=== PATIENT | female | born 1985 | race Caucasian/White ===

== ENCOUNTER 2016-11-07 05:32 | Inpatient (IN) | payer BC ==
--- NOTE | 2016-11-06 22:31 | PCM.LDHP ---
L&D History of Present Illness - General Date of Service: 11/07/16 Admit Problem/Dx: Admission Diagnosis/Problem Admission Diagnosis/Problem 11/06/16 22:21 31-year-old 4 para 2011 white female admitted for elective repeat section at 39-5/7 weeks gestational age Source of Information: Patient History Limitations: Reports: No Limitations - History of Present Illness Introduction:: Jabier is a 31-year-old 4 para 2012 white female who is admitted for elective repeat section. She is a 39-5/7 weeks gestational age. EFREN is set at 11/09/2016 by certain last menstrual period which started on 02/03/2016 and is supported by 2 ultrasounds dated 04/15/2016 and 06/24/2016. course: Patient abductor vaginosis noted on first urine culture, this was treated. she declined genetic testing. [place] depression screening score on 06/16/2016 was 8 on a scale 30 she is group B strep positive. She has a history of 2 and desires repeat section. Patient is rubella immune. Patient's obstetric history shows a menarche at age 11. Cycles every 32 days. Positive hCG on 03/14/2016. Last menstrual period was relatively definite and started on 02/03/2016. Previous deliveries include: 1. Male born 02/15/2012 at 41 weeks gestational age after 28 hours of labor. 9 lbs. 1 oz. Child's name is Mando 2. Miscarriage 04/27/2013, first trimester 3. Female infant born 12[birth year]2014 at 40 weeks gestational age. Child's name is Naomi Llamas care started on 02/14/2016 at 10-2/7 weeks gestational age. He was seen on a very regular basis. She had normal blood pressures throughout the course of and had normal fundal height growth. Her weight increased from 151.6 pounds to 194 a 39 pound weight gain. Laboratory testing showed blood to be O+, negative and by screen, hemoglobin at first visit was 14.2 and platelets are 333,000. She is rubella immune. RPR is nonreactive. Urine culture was positive for group B strep. Second trimester testing showed a hemoglobin of 12.6 and a platelet count of 230,000. One-hour GTT is 117. Group B strep screen was positive. Allergies: none Medications: Vitamins 1 daily Past medical history: 1. Miscarriage 1 2. Seasonal allergies 3. Abnormal Pap smear with HPV 2008 Past surgical history: 1. 2010 and again in 2014 2. Loop electrosurgical excision procedure for cervical dysplasia 2008 Family history: Mother is alive and healthy. Dad is alive and well. 3 brothers and 1 sister alive and well. Maternal grandmother is alive with heart disease. Maternal grandfather to live with an CT history. Paternal grandmother with heart disease. Paternal grandfather secondary to stroke. No anesthesia, bleeding, blood clotting problems noted in the family. No genetic abnormalities noted. Social history: Patient is . is Say. 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 She denies any significant loss of alcohol, drugs or tobacco. They live in [place]. Review of systems: Skin is negative Respiratory no signs of asthma or infectious disease at this time Cardiovascular no chest pain or exercise intolerance Breasts no pain or bleeding. There is increased size and tenderness noted due to GI is unremarkable changes associated with with fundal height at 41 cm Extremities muscle skeletal-no concerns Neurologic-negative Physical exam: General the patient is well-developed well-nourished pleasant female stated age distress. Blood pressures 13 2/90 and on recheck 140/90. Heart rate is 131 for baby. Weight is 190. Her height is 5 feet 6 and pregravid weight was 151.6 Skin is warm dry without lesions. HEENT, neck and back within normal limits Lungs are clear with good breath sounds in all lung monet. Cardiovascular shows regular rate Without murmurs. Breast exam deferred had been done at first visit and found to be normal. Abdomen shows fundal height of 41 cm, baby in vertex presentation Last cervical exam in clinic done on 10/30/2016 showed cervix to be closed/thick at 50%/firm/posterior/-3 Extremities neurological exam are grossly within normal limits. - Related Data Allergies/Adverse Reactions: Allergies Allergy/AdvReac Type Severity Reaction Status Date / Time No Known Allergies Allergy Verified 12/08/14 05:59 Home Medications: Home Meds Folic Acid 1 mg PO DAILY 12/08/14 [History] L.acidoph,Paracasei, B.lactis [Probiotic] 1 each PO DAILY 12/08/14 [History] PNV95/Ferrous Fumarate/FA [ Multivitamins] 1 tab PO DAILY 12/08/14 [ History] Acetaminophen/oxyCODONE [Percocet 325-5 MG] 2 tab PO Q4H PRN #20 tablet [Rx] Ibuprofen [Motrin] 600 mg PO Q4H PRN #30 tablet 12/10/14 [Rx] Iron Polysaccharides Complex [Ferrex 150] 150 mg PO TID #100 cap 12/10/14 [Rx] Lanolin [Lansinoh HPA] 1 applic TOP ASDIRECTED PRN #30 crm 12/10/14 [Rx] Past Medical History - Past Health History Medical/Surgical History: Denies Medical/Surgical History Other OB/BYN History: in 2010 Social & Family History - Tobacco Use Smoking Status *Q: Never Smoker Second Hand Smoke Exposure: No - Alcohol Use Days Per Week of Alcohol Use: 0 (none during , occasional social consumption prior) - Recreational Drug Use Recreational Drug Use: No H&P Review of Systems - Review of Systems: Review Of Systems: See Below L&D Exam - Exam Exam: See Below - Vital Signs Weight: 86.409 kg - Patient Data Lab Results Last 24 hrs: Laboratory Results - last 24 hr 11/06/16 11/06/16 Range/Units 08:27 08:27 WBC 9.34 (3.98-10.04) K/mm3 RBC 4.43 (3.98-5.22) M/mm3 Hgb 12.5 (11.2-15.7) gm/L Hct 37.8 (34.1-44.9) % MCV 85.3 (79.4-94.8) fl MCH 28.2 (25.6-32.2) pg MCHC 33.1 (32.2-35.5) g/dl RDW Std Deviation 44.1 (36.4-46.3) fL Plt Count 198 (182-369) K/mm3 MPV 10.6 (9.4-12.3) fl Neut % (Auto) 66.2 (34.0-71.1) % Lymph % (Auto) 23.9 (19.3-51.7) % [place] % (Auto) 8.0 (4.7-12.5) % Eos % (Auto) 1.0 (0.7-5.8) Baso % (Auto) 0.2 (0.1-1.2) % Neut # (Auto) 6.18 H (1.56-6.13) K/mm3 Lymph # (Auto) 2.23 (1.18-3.74) K/mm3 [place] # (Auto) 0.75 H (0.24-0.36) K/mm3 Eos # (Auto) 0.09 (0.04-0.36) K/mm3 Baso # (Auto) 0.02 (0.01-0.08) K/mm3 Blood Type O POSITIVE Gel Antibody Screen Negative Result Diagrams: 11/06/16 08:27 Problem List Initiated/Reviewed/Updated: Yes Assessment/Plan Comment:: Assessment: 1. Term intrauterine at 39-5/7 weeks gestational age upon admission for elective repeat section. Procedure, risks, benefits, possible occasions and alternatives of care discussed in detail the patient. She appears understanding and wishes to proceed 2. Group B strep positive status 3. History of Gardnerella vaginalis infection and pregnancytreated 4. Patient plans to nurse 5. Patient declined influenza testing, genetic testing. 6. Blood is O+ Plan: 1. Repeat lower segment transverse section through Pfannenstiel incision under spinal block. Procedure, risks, benefits, follow-up and alternatives were discussed in detail with patient. She appears understanding, wishes to proceed and has signed a consent. 2. Patient plans to nurse 3. Antibiotic prophylaxis with Ancef 2 g IV preop 4. Will inform pediatrics of patient's group B strep positive status 5. Laboratory testing consistent with CBC, type and screen, urine analysis
[2016-11-07] MEDS ORDERED: Citric Acid/Sodium Citrate Solution 30 ML Cup PO ONE (06:14)
[2016-11-07] MEDS ORDERED: Metoclopramide 10 MG/2 ML SDV IVPUSH ONE (06:14)
[2016-11-07] MEDS ORDERED: ceFAZolin 2 GM in Premix Bag 1 BAG IV ONE (06:14)
[2016-11-07] MEDS ORDERED: Sodium Chloride 0.9% 10 ML Syringe FLUSH PRN (06:14)
[2016-11-07] MEDS ORDERED: Oxytocin/Lactated Ringers 10 UNIT/1,000 ML BAG IV SCH (06:15)
--- NOTE | 2016-11-07 06:49 | PCM.PREANE ---
Preanesthetic Assessment - Procedure Proposed Procedure: Repeat C-sect - Anesthesia/Transfusion/Family Hx Anesthesia History: Prior Anesthesia Without Reaction Family History of Anesthesia Reaction: No - Review of Systems General: No Symptoms Pulmonary: No Symptoms Cardiovascular: No Symptoms Gastrointestinal: No symptoms Neurological: No Symptoms Other: Reports: None - Physical Assessment NPO Status Date: 11/07/16 NPO Status Time: 21:00 O2 Sat by Pulse Oximetry: 100 Respiratory Rate: 18 Vital Signs: Last Vital Signs Temp 37.2 C 11/07/16 06:20 Pulse 71 11/07/16 06:20 Resp 18 11/07/16 06:20 BP 129/86 11/07/16 06:20 Pulse Ox 100 11/07/16 06:20 Height: 1.68 m Weight: 86.409 kg ASA Class: 2 Mental Status: Alert & Oriented x3 Airway Class: Mallampati = 2 Dentition: Reports: Normal Dentition Thyro-Mental Finger Breadths: 3 Mouth Opening Finger Breadths: 3 ROM/Head Extension: Full Lungs: Clear to auscultation, Normal respiratory effort Cardiovascular: Regular Rate, Regular Rhythm, No Murmurs - Lab Values: Laboratory Last Values WBC 9.34 K/mm3 (3.98-10.04) 11/06/16 08:27 RBC 4.43 M/mm3 (3.98-5.22) 11/06/16 08:27 Hgb 12.5 gm/L (11.2-15.7) 11/06/16 08:27 Hct 37.8 % (34.1-44.9) 11/06/16 08:27 MCV 85.3 fl (79.4-94.8) 11/06/16 08:27 MCH 28.2 pg (25.6-32.2) 11/06/16 08:27 MCHC 33.1 g/dl (32.2-35.5) 11/06/16 08:27 RDW Std Deviation 44.1 fL (36.4-46.3) 11/06/16 08:27 Plt Count 198 K/mm3 (182-369) 11/06/16 08:27 MPV 10.6 fl (9.4-12.3) 11/06/16 08:27 Neut % (Auto) 66.2 % (34.0-71.1) 11/06/16 08:27 Lymph % (Auto) 23.9 % (19.3-51.7) 11/06/16 08:27 [place] % (Auto) 8.0 % (4.7-12.5) 11/06/16 08:27 Eos % (Auto) 1.0 (0.7-5.8) 11/06/16 08:27 Baso % (Auto) 0.2 % (0.1-1.2) 11/06/16 08:27 Neut # (Auto) 6.18 K/mm3 (1.56-6.13) H 11/06/16 08:27 Lymph # (Auto) 2.23 K/mm3 (1.18-3.74) 11/06/16 08:27 [place] # (Auto) 0.75 K/mm3 (0.24-0.36) H 11/06/16 08:27 Eos # (Auto) 0.09 K/mm3 (0.04-0.36) 11/06/16 08:27 Baso # (Auto) 0.02 K/mm3 (0.01-0.08) 11/06/16 08:27 Blood Type O POSITIVE 11/06/16 08:27 Gel Antibody Screen Negative 11/06/16 08:27 - Allergies Allergies/Adverse Reactions: Allergies Allergy/AdvReac Type Severity Reaction Status Date / Time No Known Allergies Allergy Verified 12/08/14 05:59 - Anesthesia Plan Pre-Op Medication Ordered: Antacids - Acknowledgements Anesthesia Type Planned: Spinal Pt an Appropriate Candidate for the Planned Anesthesia: Yes Alternatives and Risks of Anesthesia Discussed w Pt/Guardian: Yes Pt/Guardian Understands and Agrees with Anesthesia Plan: Yes PreAnesthesia Questionnaire - Past Health History Medical/Surgical History: Denies Medical/Surgical History Other OB/BYN History: c-sectionx2 in 2010, 2014 - SUBSTANCE USE Smoking Status *Q: Never Smoker Tobacco Use Within Last Twelve Months: No Second Hand Smoke Exposure: No Days Per Week of Alcohol Use: 0 (none during , occasional social consumption prior) Recreational Drug Use History: No - HOME MEDS Home Medications: Home Meds Folic Acid 1 mg PO DAILY 12/08/14 [History] L.acidoph,Paracasei, B.lactis [Probiotic] 1 each PO DAILY 12/08/14 [History] PNV95/Ferrous Fumarate/FA [ Multivitamins] 1 tab PO DAILY 12/08/14 [ History] Acetaminophen/oxyCODONE [Percocet 325-5 MG] 2 tab PO Q4H PRN #20 tablet [Rx] Ibuprofen [Motrin] 600 mg PO Q4H PRN #30 tablet 12/10/14 [Rx] Iron Polysaccharides Complex [Ferrex 150] 150 mg PO TID #100 cap 12/10/14 [Rx] Lanolin [Lansinoh HPA] 1 applic TOP ASDIRECTED PRN #30 crm 12/10/14 [Rx] - CURRENT (IN HOUSE) MEDS Current Meds: Current Medications Lactated Ringer's (Ringers, Lactated) 1,000 mls @ 125 mls/hr IV ASDIRECTED FANNIE Oxytocin/Lactated Ringer's (Pitocin In Lr 10 Units/1,000 Ml) 10 unit in 1,000 mls @ 100 mls/hr IV ASDIRECTED FANNIE Sodium Chloride (Saline Flush) 10 ml FLUSH ASDIRECTED PRN PRN Reason: Keep Vein Open Discontinued Medications Citric Acid/Sodium Citrate (Bicitra Solution) 30 ml PO ONETIME ONE Stop: 11/07/16 06:15 Cefazolin Sodium/Dextrose 2 gm (/ Premix) 50 mls @ 100 mls/hr IV ONETIME ONE Stop: 11/07/16 06:43 Metoclopramide HCl (Reglan) 10 mg IVPUSH ONETIME ONE Stop: 11/07/16 06:15
[2016-11-07] MEDS: Lactated Ringers 1,000 ML IV SCH ×2 (07:00→07:22)
[2016-11-07] MEDS ORDERED: ceFAZolin 1 GM Vial ONE (07:25)
[2016-11-07] MEDS ORDERED: Ondansetron 4 MG/2 ML SDV ONE (07:25)
[2016-11-07] MEDS ORDERED: Morphine PF 10 MG/10 ML SDV ONE (07:25)
[2016-11-07] MEDS ORDERED: Ketorolac 30 MG/ML SDV ONE (07:25)
[2016-11-07] MEDS ORDERED: Oxytocin 10 Units/1 ML SDV ONE (07:25)
[2016-11-07] MEDS: Bupivacaine 0.5% 30 ML SDV ONE ×2 (08:01→09:53)
[2016-11-07] MEDS ORDERED: fentaNYL 100 MCG/2 ML SDV IVPUSH PRN (08:42)
[2016-11-07] MEDS ORDERED: diphenhydrAMINE 50 MG/ML SDV IVPUSH PRN ×2 (08:42→10:25)
[2016-11-07] MEDS ORDERED: Ondansetron 4 MG/2 ML SDV IVPUSH PRN (08:42)
[2016-11-07] MEDS ORDERED: Meperidine PF 50 MG/ML Syringe ONE (08:43)
--- NOTE | 2016-11-07 08:56 | PCM.POSTAN ---
POST ANESTHESIA ASSESSMENT - MENTAL STATUS Mental Status: alert, oriented - VITAL SIGNS Pulse Rate: 66 SaO2: 100 Resp Rate: 20 Blood Pressure: 131/72 Temperature: 36.7 C - RESPIRATORY Respiratory Status: respiratory rate WNL, airway patent, O2 saturation stable, supplemental oxygen - CARDIOVASCULAR CV Status: pulse rate WNL, blood pressure stable - GASTROINTESTINAL GI Status: no symptoms - PAIN Pain Score: 0 - POST OP HYDRATION Hydration Status: adequate & stable
[2016-11-07] MEDS ORDERED: ePHEDrine 50 MG/ML SDV IVPUSH PRN (10:25)
[2016-11-07] MEDS ORDERED: Naloxone 0.4 MG/ML SDV IVPUSH PRN (10:25)
[2016-11-07] MEDS ORDERED: Dextrose 5%-Lactated Ringers 1,000 ML IV SCH (10:25)
[2016-11-07] MEDS ORDERED: Lanolin 100% Cream 7 GM Tube TOP PRN (10:25)
[2016-11-07] MEDS ORDERED: Dextrose 5%-0.45% NaCl 1,000 ML IV SCH (10:25)
[2016-11-07] MEDS ORDERED: Acetaminophen/oxyCODONE 325-5 MG Tab PO PRN (10:25)
--- NOTE | 2016-11-07 10:45 | PCM.OPNOTE ---
- General Post-Op/Procedure Note Date of Surgery/Procedure: 11/07/16 Operative Procedure(s): Repeat lower uterine segment transverse section through Pfannenstiel skin incision Findings: There is a vertex presentation. Patient had moderate to slightly increased amounts of amniotic fluid. Amniotic fluid was clear The uterus tubes and ovaries were consistent with a term . Pre Op Diagnosis: 39-5/7 week intrauterine , history of previous section 2 with desire for repeat section Post-Op Diagnosis: Same with delivery of a viable 8 lbs. 10 oz. male with Apgars of 9 and 9 and a length of 21 inches. Anesthesia Technique: Spinal Other Anesthesia Type: Marcaine 0.5%20 mL local Primary Surgeon: Ty Dunlap Secondary Surgeon: Sebastian Mirza Anesthesia Provider: Bentley Davila Fluid Replacement, Intraop: 1,500 Output, Urine Amount: 250 EBL in mLs: 500 Drain/Tube Comments:: Indwelling bladder catheter Condition: Good Free Text/Narrative:: Intake & Output 11/06/16 11/07/16 11/07/16 22:59 06:59 14:59 Intake Total 400 Output Total 350 Balance 50 Patient was transferred the room and placed in a sitting position. Spinal anesthetic was placed. After confirmation of adequate anesthesia patient was placed in a supine position with a wedge under her right side to facilitate left lateral positioning. The patient was prepped and draped in usual fashion after Black catheter was already placed . The anesthetic was checked and found to be adequate. The Pfannenstiel skin incision was then made carried down to skin subcutaneous and fascial layers. The fascia was then undermined superiorly and inferiorly to allow for adequate operating room the recti muscles midline and preperitoneal fat was bluntly dissected. Moderate amount scarring was noted from previous section 2. Peritoneal cavity was entered longitudinally. The vesicouterine peritoneum was then incised transversely and bladder flap was developed. Myometrium was incised transversely to the level of the amniotic sac. This incision was extended bilaterally in a blunt fashion. The amniotic sac was then ruptured resulting clear amniotic fluid. A hand is placed and low uterine segment and the baby's head was brought forth through the incision. The baby was completely delivered using fundal pressure in a routine fashion. The nose and mouth were bulb suctioned. Baby's cord was clamped x2 cut and baby was handed off to attending avionics systems integration specialist Dr Moser. Placenta was expressed after cord blood was obtained. Uterus was then exteriorized to allow for easier closure. The cervix was assessed and found to be dilated adequately to allow egress of blood. The uterus was closed in 2 layers. The first layer a running locked suture of 0 Monocryl, the second layer a running locked vertical mattress suture of 0 Monocryl. [id number] suture was placed at the left incision to control 1 bleeder. Hemostasis confirmed at this time. Sponge instrument needle counts are correct. The uterus was returned to the abdominal cavity and lateral gutters were cleared of blood. Once again sponge needle counts are correct. The anterior abdominal wall was closed with a #1 PDS suture from angle to angle. The subcutaneous area was found to be free of any bleeders. Skin was closed with a running subcuticular stitch of 3-0 Monocryl in a vertical mattress suture fashion using a Deven needle. Prineo mesh /glue was then applied to further approximate the incision. It should be noted that patient received 2 g of Ancef preoperatively for infection prophylaxis and had Pitocin infused after delivery of the placenta to facilitate uterine contraction. She also had sequential compression stockings in place for DVT prophylaxis. Patient was discharged from the operating room in satisfactory condition. 44 minutes Palpitations: None Specimens: None Procedure: My
[2016-11-07] MEDS ORDERED: Dextrose 5%-Lactated Ringers 1,000 ML ONE (10:50)
[2016-11-07] MEDS: Simethicone 80 MG Tab.Chew PO SCH ×4 (11:40→21:20)
[2016-11-07] MEDS: Prenatal Multivitamin with Calcium/Folic Acid/Iron Tab PO SCH (11:40)
[2016-11-07] MEDS: Ibuprofen 800 MG Tab PO SCH ×2 (14:42→22:55)
[2016-11-07] MEDS: Docusate Sodium 100 MG Cap PO PRN (21:20)
[2016-11-08] MEDS: Ibuprofen 800 MG Tab PO SCH ×3 (06:42→22:23)
--- NOTE | 2016-11-08 10:37 | PCM.PNPP ---
- General Info Date of Service: 11/08/16 Admission Dx/Problem (Free Text): Admission Diagnosis/Problem Admission Diagnosis/Problem 11/06/16 22:21 31-year-old 4 para 2012 white female admitted for elective repeat section at 39-5/7 weeks gestational age Functional Status: Reports: pain controlled - Review of Systems General: Reports: No Symptoms (Ambulating without difficulty) HEENT: Reports: no symptoms Pulmonary: Reports: no symptoms Cardiovascular: Reports: No Symptoms Gastrointestinal: Reports: No symptoms Genitourinary: Reports: no symptoms Musculoskeletal: Reports: no symptoms Skin: Reports: no symptoms Neurological: Reports: No Symptoms Psychiatric: Reports: no symptoms - General Info Date of Service: 11/08/16 - Patient Data Vital Signs - most recent: Last Vital Signs Temp 97.5 F 11/08/16 09:00 Pulse 74 11/08/16 09:00 Resp 16 11/08/16 09:00 BP 128/75 11/08/16 09:00 Pulse Ox 97 11/08/16 09:00 Weight - most recent: 190 lb 8 oz I&O - last 24 hours: Intake & Output 11/07/16 11/08/16 11/08/16 22:59 06:59 14:59 Intake Total 1040 600 Output Total 1800 1350 500 Balance -760 -750 -500 Lab Results - last 24 hrs: Laboratory Results - last 24 hr 11/08/16 Range/Units 06:24 WBC 9.42 (3.98-10.04) K/mm3 RBC 3.02 L (3.98-5.22) M/mm3 Hgb 8.6 L (11.2-15.7) gm/L Hct 26.3 L (34.1-44.9) % MCV 87.1 (79.4-94.8) fl MCH 28.5 (25.6-32.2) pg MCHC 32.7 (32.2-35.5) g/dl RDW Std Deviation 44.3 (36.4-46.3) fL Plt Count 181 L (182-369) K/mm3 MPV 10.2 (9.4-12.3) fl Neut % (Auto) 72.2 H (34.0-71.1) % Lymph % (Auto) 21.3 (19.3-51.7) % [place] % (Auto) 5.4 (4.7-12.5) % Eos % (Auto) 0.5 L (0.7-5.8) Baso % (Auto) 0.2 (0.1-1.2) % Neut # (Auto) 6.79 H (1.56-6.13) K/mm3 Lymph # (Auto) 2.01 (1.18-3.74) K/mm3 [place] # (Auto) 0.51 H (0.24-0.36) K/mm3 Eos # (Auto) 0.05 (0.04-0.36) K/mm3 Baso # (Auto) 0.02 (0.01-0.08) K/mm3 Med Orders - Current: Current Medications Diphenhydramine HCl (Benadryl) 25 mg IVPUSH Q6H PRN PRN Reason: Itching or Nausea Docusate Sodium (Colace) 100 mg PO Q12H PRN PRN Reason: Constipation Last Admin: 11/07/16 21:20 Dose: 100 mg Emollient Ointment (Lansinoh Hpa) 0 gm TOP ASDIRECTED PRN PRN Reason: Sore Nipples Ephedrine Sulfate (Ephedrine Sulfate) 5 mg IVPUSH SEECOMMENT PRN PRN Reason: Other Ibuprofen (Motrin) 800 mg PO Q8H [facility] Last Admin: 11/08/16 06:42 Dose: 800 mg Naloxone HCl (Narcan) 0.1 mg IVPUSH SEECOMMENT PRN PRN Reason: Respiratory Depression Oxycodone/Acetaminophen (Percocet 325-5 Mg) 2 tab PO Q4H PRN PRN Reason: Pain (moderate 4-6) Last Admin: 11/07/16 23:37 Dose: 2 tab Prenat Multivit/[place]/Iron/Folic Ac ( Plus Iron) 1 each PO DAILY [facility] Last Admin: 11/07/16 11:40 Dose: Not Given Simethicone (Simethicone) 80 mg PO PCBED [facility] Last Admin: 11/07/16 21:20 Dose: 80 mg Discontinued Medications Bupivacaine HCl (Marcaine 0.5%) Confirm Administered Dose 30 ml .ROUTE .STK-MED ONE Stop: 11/07/16 06:46 Last Admin: 11/07/16 08:01 Dose: 20 ml Cefazolin Sodium (Ancef) Confirm Administered Dose 2 gm .ROUTE .STK-MED ONE Stop: 11/07/16 07:26 Citric Acid/Sodium Citrate (Bicitra Solution) 30 ml PO ONETIME ONE Stop: 11/07/16 06:15 Last Admin: 11/07/16 07:21 Dose: 30 ml Diphenhydramine HCl (Benadryl) 25 mg IVPUSH Q6H PRN PRN Reason: Pruritis Fentanyl (Sublimaze) 50 mcg IVPUSH Q5M PRN PRN Reason: Pain Stop: 11/07/16 08:58 Lactated Ringer's (Ringers, Lactated) 1,000 mls @ 125 [facility]ls[facility] Admin: 11/07/16 07:22 Dose: 999 mls/hr Oxytocin/Lactated Ringer's (Pitocin In Lr 10 Units/1,000 Ml) 10 unit in 1,000 mls @ 100 mls/[facility] Cefazolin Sodium/Dextrose 2 gm (/ Premix) 50 mls @ 100 mls/hr IV ONETIME ONE Stop: 11/07/16 06:43 Last Admin: 11/07/16 21:49 Dose: Not Given Dextrose/Sodium Chloride (Dextrose 5%-1/2 Ns) 1,000 mls @ 125 mls[facility]hr [facility] Last Admin: 11/07/16 16:01 Dose: 125 mls/hr Dextrose/Lactated Ringer's (Dextrose 5%-Lactated Ringers) 1,000 mls @ 125 mls/ hr IV [facility] Stop: 11/07/16 18:24 Last Admin: 11/07/16 10:55 Dose: 125 mls/hr Dextrose/Lactated Ringer's (Dextrose 5%-Lactated Ringers) Confirm Administered Dose 1,000 mls @ as directed .ROUTE .STK-MED ONE Stop: 11/07/16 10:51 Last Admin: 11/07/16 11:39 Dose: Not Given Ketorolac Tromethamine (Toradol) Confirm Administered Dose 30 mg .ROUTE .STK- MED ONE Stop: 11/07/16 07:26 Meperidine HCl (Demerol) Confirm Administered Dose 50 mg .ROUTE .STK-MED ONE Stop: 11/07/16 08:44 Metoclopramide HCl (Reglan) 10 mg IVPUSH ONETIME ONE Stop: 11/07/16 06:15 Last Admin: 11/07/16 07:21 Dose: 10 mg Morphine Sulfate (Duramorph Pf) Confirm Administered Dose 10 mg .ROUTE .STK-MED ONE Stop: 11/07/16 07:26 Ondansetron HCl (Zofran) Confirm Administered Dose 4 mg .ROUTE .STK-MED ONE Stop: 11/07/16 07:26 Ondansetron HCl (Zofran) 4 mg IVPUSH ONETIME PRN PRN Reason: Nausea/Vomiting Oxytocin (Pitocin) Confirm Administered Dose 20 unit .ROUTE .STK-MED ONE Stop: 11/07/16 07:26 Sodium Chloride (Saline Flush) 10 ml FLUSH ASDIRECTED PRN PRN Reason: Keep Vein Open - Infant Interaction Disposition, : Arnold in Room with Family Infant Interaction: Holding Infant Feeding: Continues to Breastfeed Support Person: - Recovery Exam Fundal Tone: Firm Fundal Level: 1 Fingerbreadths Below Umbilicus Fundal Placement: Midline Lochia Amount: Small Lochia Color: Rubra/Red Perineum Description: Intact, Minimal Bruising/Swelling Episiotomy/Laceration: None Bladder Status: Indwelling Catheter in Place Urinary Elimination: Indwelling Catheter - Exam General: alert, oriented HEENT: Mucous membr. moist/pink (But pale patient anemic) Neck: supple Lungs: Clear to auscultation, Normal respiratory effort, Crackles (Superior posterior) Cardiovascular: Regular Rate, Regular Rhythm Abdomen: bowel sounds present, soft, no tenderness, no distension, other ( Incision "moist" but no drainage) Extremities: no edema Skin: warm, dry, intact Wound/Incisions: healing well Psy/Mental Status: alert, normal affect, normal mood - Problem List & Annotations (1) Anemia, SNOMED Code(s): 812594166 Code(s): O90.81 - ANEMIA OF THE PUERPERIUM Status: Acute Current Visit: Yes (2) delivery due to previous difficult delivery, delivered, current hospitalization SNOMED Code(s): 779287275 Code(s): O99.89 - OTH DISEASES AND CONDITIONS COMPL PREG/CHLDBRTH; Z87.59 - PERSONAL HISTORY OF COMP OF PREG, CHLDBRTH AND THE PUERP Status: Acute Current Visit: Yes (3) 36 weeks gestation of SNOMED Code(s): 91242778 Code(s): Z3A.36 - 36 WEEKS GESTATION OF Status: Acute Current Visit: Yes - Problem List Review Problem List Initiated/Reviewed/Updated: No - My Orders Last 24 Hours: My Active Orders 11/09/16 06:00 CBC W/O DIFF,HEMOGRAM [HEME] Routine - Assessment Assessment:: Decreased breath sounds posterior superior with "crackles" - Plan Plan:: Assessment: 1. Term intrauterine at 39-5/7 weeks gestational age upon admission for elective repeat section. Procedure, risks, benefits, possible occasions and alternatives of care discussed in detail the patient. She appears understanding and wishes to proceed 2. Group B strep positive status 3. History of Gardnerella vaginalis infection and pregnancytreated 4. Patient plans to nurse 5. Patient declined influenza testing, genetic testing. 6. Blood is O+ Plan: 1. Repeat lower segment transverse section through Pfannenstiel incision under spinal block. Procedure, risks, benefits, follow-up and alternatives were discussed in detail with patient. She appears understanding, wishes to proceed and has signed a consent. 2. Patient plans to nurse 3. Antibiotic prophylaxis with Ancef 2 g IV preop 4. Will inform pediatrics of patient's group B strep positive status 5. Laboratory testing consistent with CBC, type and screen, urine analysis Decreased breath sounds bilaterally with crackles will increase pulmonary toilet with incentive spirometer Incision "moist" but no drainage Patient anemic ambulating without difficulty Will repeat CBC tomorrow morning
[2016-11-08] MEDS: Simethicone 80 MG Tab.Chew PO SCH ×4 (10:59→21:36)
[2016-11-08] MEDS: Prenatal Multivitamin with Calcium/Folic Acid/Iron Tab PO SCH (10:59)
--- NOTE | 2016-11-08 16:36 | PCM48HPAN ---
Post Anesthesia Note - EVALUATION WITHIN 48HRS OF ANESTHETIC Vital Signs in Normal Range: Yes Patient Participated in Evaluation: Yes Respiratory Function Stable: Yes Airway Patent: Yes Cardiovascular Function Stable: Yes Hydration Status Stable: Yes Pain Control Satisfactory: Yes Nausea and Vomiting Control Satisfactory: Yes Mental Status Recovered: Yes
[2016-11-08] MEDS: Docusate Sodium 100 MG Cap PO PRN (21:40)
[2016-11-09] MEDS: Ibuprofen 800 MG Tab PO SCH (06:58)
--- NOTE | 2016-11-09 08:06 | PCM.DCSUM1 ---
Discharge Summary - Hospital Course Free Text/Narrative:: [facility] Post-Op/Procedure Note Patient Name: KIRSTIE PULLIAM Date of : 83 Patient Status: Inpatient Attending Provider: Ty Dunlap Date: 11/07/16 10:41 Initialization Date: 11/07/16 10:41 - General Post-Op/Procedure Note Date of Surgery/Procedure: 11/07/16 Operative Procedure(s): Repeat lower uterine segment transverse section through Pfannenstiel skin incision Findings: There is a vertex presentation. Patient had moderate to slightly increased amounts of amniotic fluid. Amniotic fluid was clear The uterus tubes and ovaries were consistent with a term . Pre Op Diagnosis: 39-5/7 week intrauterine , history of previous section 2 with desire for repeat section Post-Op Diagnosis: Same with delivery of a viable 8 lbs. 10 oz. male with Apgars of 9 and 9 and a length of 21 inches. Anesthesia Technique: Spinal Other Anesthesia Type: Marcaine 0.5%20 mL local Primary Surgeon: Ty Dunlap Secondary Surgeon: Sebastian Mirza Anesthesia Provider: Bentley Davila Fluid Replacement, Intraop: 1,500 Output, Urine Amount: 250 EBL in mLs: 500 Drain/Tube Comments:: Indwelling bladder catheter Condition: Good Free Text/Narrative:: Intake & Output 11/06/16 11/07/16 11/07/16 22:59 06:59 14:59 Intake Total 400 Output Total 350 Balance 50 Patient was transferred the room and placed in a sitting position. Spinal anesthetic was placed. After confirmation of adequate anesthesia patient was placed in a supine position with a wedge under her right side to facilitate left lateral positioning. The patient was prepped and draped in usual fashion after Black catheter was already placed . The anesthetic was checked and found to be adequate. The Pfannenstiel skin incision was then made carried down to skin subcutaneous and fascial layers. The fascia was then undermined superiorly and inferiorly to allow for adequate operating room the recti muscles midline and preperitoneal fat was bluntly dissected. Moderate amount scarring was noted from previous section 2. Peritoneal cavity was entered longitudinally. The vesicouterine peritoneum was then incised transversely and bladder flap was developed. Myometrium was incised transversely to the level of the amniotic sac. This incision was extended bilaterally in a blunt fashion. The amniotic sac was then ruptured resulting clear amniotic fluid. A hand is placed and low uterine segment and the baby's head was brought forth through the incision. The baby was completely delivered using fundal pressure in a routine fashion. The nose and mouth were bulb suctioned. Baby's cord was clamped x2 cut and baby was handed off to attending medical scheduler Dr Moser. Placenta was expressed after cord blood was obtained. Uterus was then exteriorized to allow for easier closure. The cervix was assessed and found to be dilated adequately to allow egress of blood. The uterus was closed in 2 layers. The first layer a running locked suture of 0 Monocryl, the second layer a running locked vertical mattress suture of 0 Monocryl. [id number] suture was placed at the left incision to control 1 bleeder. Hemostasis confirmed at this time. Sponge instrument needle counts are correct. The uterus was returned to the abdominal cavity and lateral gutters were cleared of blood. Once again sponge needle counts are correct. The anterior abdominal wall was closed with a #1 PDS suture from angle to angle. The subcutaneous area was found to be free of any bleeders. Skin was closed with a running subcuticular stitch of 3-0 Monocryl in a vertical mattress suture fashion using a Deven needle. Prineo mesh /glue was then applied to further approximate the incision. It should be noted that patient received 2 g of Ancef preoperatively for infection prophylaxis and had Pitocin infused after delivery of the placenta to facilitate uterine contraction. She also had sequential compression stockings in place for DVT prophylaxis. Patient was discharged from the operating room in satisfactory condition. 44 minutes Palpitations: None Specimens: None Procedure: My HPI Initial Comments: [facility] Post-Op/Procedure Note Patient Name: KIRSTIE PULLIAM Date of : 83 Patient Status: Inpatient Attending Provider: Ty Dunlap Date: 11/07/16 10:41 Initialization Date: 11/07/16 10:41 - General Post-Op/Procedure Note Date of Surgery/Procedure: 11/07/16 Operative Procedure(s): Repeat lower uterine segment transverse section through Pfannenstiel skin incision Findings: There is a vertex presentation. Patient had moderate to slightly increased amounts of amniotic fluid. Amniotic fluid was clear The uterus tubes and ovaries were consistent with a term . Pre Op Diagnosis: 39-5/7 week intrauterine , history of previous section 2 with desire for repeat section Post-Op Diagnosis: Same with delivery of a viable 8 lbs. 10 oz. male infant with Apgars of 9 and 9 and a length of 21 inches. Anesthesia Technique: Spinal Other Anesthesia Type: Marcaine 0.5%20 mL local Primary Surgeon: Ty Dunlap Secondary Surgeon: Sebastian Mirza Anesthesia Provider: Bentley Davila Fluid Replacement, Intraop: 1,500 Output, Urine Amount: 250 EBL in mLs: 500 Drain/Tube Comments:: Indwelling bladder catheter Condition: Good Free Text/Narrative:: Intake & Output 11/06/16 11/07/16 11/07/16 22:59 06:59 14:59 Intake Total 400 Output Total 350 Balance 50 Patient was transferred the room and placed in a sitting position. Spinal anesthetic was placed. After confirmation of adequate anesthesia patient was placed in a supine position with a wedge under her right side to facilitate left lateral positioning. The patient was prepped and draped in usual fashion after Black catheter was already placed . The anesthetic was checked and found to be adequate. The Pfannenstiel skin incision was then made carried down to skin subcutaneous and fascial layers. The fascia was then undermined superiorly and inferiorly to allow for adequate operating room the recti muscles midline and preperitoneal fat was bluntly dissected. Moderate amount scarring was noted from previous section 2. Peritoneal cavity was entered longitudinally. The vesicouterine peritoneum was then incised transversely and bladder flap was developed. Myometrium was incised transversely to the level of the amniotic sac. This incision was extended bilaterally in a blunt fashion. The amniotic sac was then ruptured resulting clear amniotic fluid. A hand is placed and low uterine segment and the baby's head was brought forth through the incision. The baby was completely delivered using fundal pressure in a routine fashion. The nose and mouth were bulb suctioned. Baby's cord was clamped x2 cut and baby was handed off to attending medical scheduler Dr Moser. Placenta was expressed after cord blood was obtained. Uterus was then exteriorized to allow for easier closure. The cervix was assessed and found to be dilated adequately to allow egress of blood. The uterus was closed in 2 layers. The first layer a running locked suture of 0 Monocryl, the second layer a running locked vertical mattress suture of 0 Monocryl. [id number]-gu-[id number] suture was placed at the left incision to control 1 bleeder. Hemostasis confirmed at this time. Sponge instrument needle counts are correct. The uterus was returned to the abdominal cavity and lateral gutters were cleared of blood. Once again sponge needle counts are correct. The anterior abdominal wall was closed with a #1 PDS suture from angle to angle. The subcutaneous area was found to be free of any bleeders. Skin was closed with a running subcuticular stitch of 3-0 Monocryl in a vertical mattress suture fashion using a Deven needle. Prineo mesh /glue was then applied to further approximate the incision. It should be noted that patient received 2 g of Ancef preoperatively for infection prophylaxis and had Pitocin infused after delivery of the placenta to facilitate uterine contraction. She also had sequential compression stockings in place for DVT prophylaxis. Patient was discharged from the operating room in satisfactory condition. 44 minutes Palpitations: None Specimens: None Procedure: My Brief History: [facility] . Post-Op/Procedure Note. Patient Name: KIRSTIE PULLIAM [facility] Record Number: [id number]. Date of : Patient Status: Inpatient. Attending Provider: Ty Dunlap FAccount Number : [id number]. Date: 11/07/16 10:41Initialization Date: 11/07/16 10:41. - General Post-Op/Procedure Note. Date of Surgery/Procedure: 11/07/16. Operative Procedure(s): Repeat lower uterine segment transverse section through Pfannenstiel skin incision. Findings: There is a vertex presentation. Patient had moderate to slightly increased amounts of amniotic fluid. Amniotic fluid was clear The uterus tubes and ovaries were consistent with a term . Pre Op Diagnosis: 39-5/7 week intrauterine , history of previous section 2 with desire for repeat section. Post-Op Diagnosis: Same with delivery of a viable 8 lbs. 10 oz. male infant with Apgars of 9 and 9 and a length of 21 inches. Anesthesia Technique: Spinal. Other Anesthesia Type: Marcaine 0.5%20 mL local. Primary Surgeon: Ty Dunlap. Secondary Surgeon: Sebastian Mirza. Anesthesia Provider: Bentley Davila. Fluid Replacement, Intraop: 1,500. Output, Urine Amount: 250. EBL in mLs: 500. Drain/Tube Comments:: Indwelling bladder catheter. Condition: Good. Free Text/Narrative:: Intake & Output. 11/06/1706/. [id number]. Intake [id number]. Output [id number]. [id number]. Patient was transferred the room and placed in a sitting position. Spinal anesthetic was placed. After confirmation of adequate anesthesia patient was placed in a supine position with a wedge under her right side to facilitate left lateral positioning. The patient was prepped and draped in usual fashion after Black catheter was already placed . The anesthetic was checked and found to be adequate. The Pfannenstiel skin incision was then made carried down to skin subcutaneous and fascial layers. The fascia was then undermined superiorly and inferiorly to allow for adequate operating room the recti muscles midline and preperitoneal fat was bluntly dissected. Moderate amount scarring was noted from previous section 2. Peritoneal cavity was entered longitudinally. The vesicouterine peritoneum was then incised transversely and bladder flap was developed. Myometrium was incised transversely to the level of the amniotic sac. This incision was extended bilaterally in a blunt fashion. The amniotic sac was then ruptured resulting clear amniotic fluid. A hand is placed and low uterine segment and the baby's head was brought forth through the incision. The baby was completely delivered using fundal pressure in a routine fashion. The nose and mouth were bulb suctioned. Baby's cord was clamped x2 cut and baby was handed off to attending medical scheduler Dr Moser. Placenta was expressed after cord blood was obtained. Uterus was then exteriorized to allow for easier closure. The cervix was assessed and found to be dilated adequately to allow egress of blood. The uterus was closed in 2 layers. The first layer a running locked suture of 0 Monocryl, the second layer a running locked vertical mattress suture of 0 Monocryl. Qanepw-vk-sguud suture was placed at the left incision to control 1 bleeder. Hemostasis confirmed at this time. Sponge instrument needle counts are correct. The uterus was returned to the abdominal cavity and lateral gutters were cleared of blood. Once again sponge needle counts are correct. The anterior abdominal wall was closed with a #1 PDS suture from angle to angle. The subcutaneous area was found to be free of any bleeders. Skin was closed with a running subcuticular stitch of 3-0 Monocryl in a vertical mattress suture fashion using a Deven needle. Prineo mesh /glue was then applied to further approximate the incision. It should be noted that patient received 2 g of Ancef preoperatively for infection prophylaxis and had Pitocin infused after delivery of the placenta to facilitate uterine contraction. She also had sequential compression stockings in place for DVT prophylaxis. Patient was discharged from the operating room in satisfactory condition. 44 minutes. Palpitations: None. Specimens: None. Procedure: My C- section - Discharge Data Discharge Date: 11/09/16 Discharge Disposition: Home, Self-Care 01 Condition: Good - Discharge Diagnosis/Problem(s) (1) Anemia, SNOMED Code(s): 050745426 ICD Code: O90.81 - ANEMIA OF THE PUERPERIUM Status: Acute Current Visit: Yes (2) delivery due to previous difficult delivery, delivered, current hospitalization SNOMED Code(s): 491544379 ICD Code: O99.89 - OTH DISEASES AND CONDITIONS COMPL PREG/CHLDBRTH; Z87.59 - PERSONAL HISTORY OF COMP OF PREG, CHLDBRTH AND THE PUERP Status: Acute Current Visit: Yes (3) 36 weeks gestation of SNOMED Code(s): 53437619 ICD Code: Z3A.36 - 36 WEEKS GESTATION OF Status: Acute Current Visit: Yes - Patient Summary/Data Operative Procedure(s) Performed: Repeat lower uterine segment transverse section through Pfannenstiel skin incision Complications: None Consults: None Hospital Course: Uneventful - Patient Instructions Diet: Heart Healthy Diet Driving: Do Not Drive (For 2-4 weeks and for at least 48 hours after last Percocet) Showering/Bathing: May Shower, No Tub Bathing/Swimming Wound/Incision Care: Keep Operative Site/Wound Site Clean and Dry (6 weeks) Notify Provider of: Fever, Increased Pain, Swelling and Redness, Drainage, Nausea and/or Vomiting - Discharge Plan Home Medications: Home Meds PNV95/Ferrous Fumarate/FA [ Multivitamins] 1 tab PO DAILY 12/08/14 [ History] Acetaminophen/oxyCODONE [Percocet 325-5 MG] 2 tab PO Q6H PRN #0 tablet 11/09/16 [Rx] Docusate Sodium [Colace] 100 mg PO Q12H PRN #0 cap 11/09/16 [Rx] Ibuprofen [IJD: Ibuprofen] 800 mg PO Q8H tablet 11/09/16 [Rx] Simethicone 80 mg PO PCBED tab.chew 11/09/16 [Rx] Referrals: Ty Dunlap MD [Primary Care Provider] - (4 weeks) - Discharge Summary/Plan Comment DC Time >30 min.: No - Patient Data Vitals - Most Recent: Last Vital Signs Temp 97.7 F 11/09/16 04:22 Pulse 80 11/09/16 04:22 Resp 20 11/09/16 04:22 BP 110/87 11/09/16 04:22 Pulse Ox 99 11/09/16 04:22 Weight - Most Recent: 190 lb 8 oz I&O - Last 24 hours: Intake & Output 11/08/16 11/09/16 11/09/16 22:59 06:59 14:59 Intake Total 240 Balance 240 Lab Results - Last 24 hrs: Laboratory Results - last 24 hr 11/09/16 Range/Units 05:38 WBC 9.57 (3.98-10.04) K/mm3 RBC 2.95 L (3.98-5.22) M/mm3 Hgb 8.4 L (11.2-15.7) gm/L Hct 25.7 L (34.1-44.9) % MCV 87.1 (79.4-94.8) fl MCH 28.5 (25.6-32.2) pg MCHC 32.7 (32.2-35.5) g/dl RDW Std Deviation 44.5 (36.4-46.3) fL Plt Count 208 (182-369) K/mm3 MPV 10.2 (9.4-12.3) fl Med Orders - Current: Current Medications Diphenhydramine HCl (Benadryl) 25 mg IVPUSH Q6H PRN PRN Reason: Itching or Nausea Docusate Sodium (Colace) 100 mg PO Q12H PRN PRN Reason: Constipation Last Admin: 11/08/16 21:40 Dose: 100 mg Emollient Ointment (Lansinoh Hpa) 0 gm TOP ASDIRECTED PRN PRN Reason: Sore Nipples Ephedrine Sulfate (Ephedrine Sulfate) 5 mg IVPUSH SEECOMMENT PRN PRN Reason: Other Ibuprofen (Motrin) 800 mg PO Q8H [facility] Last Admin: 11/09/16 06:58 Dose: 800 mg Naloxone HCl (Narcan) 0.1 mg IVPUSH SEECOMMENT PRN PRN Reason: Respiratory Depression Oxycodone/Acetaminophen (Percocet 325-5 Mg) 2 tab PO Q4H PRN PRN Reason: Pain (moderate 4-6) Last Admin: 11/07/16 23:37 Dose: 2 tab Prenat Multivit/Chain Builder/Iron/Folic Ac ( Plus Iron) 1 each PO DAILY [facility] Last Admin: 11/08/16 10:59 Dose: 1 each Simethicone (Simethicone) 80 mg PO PCBED [facility] Last Admin: 11/08/16 21:36 Dose: 80 mg Discontinued Medications Bupivacaine HCl (Marcaine 0.5%) Confirm Administered Dose 30 ml .ROUTE .STK-MED ONE Stop: 11/07/16 06:46 Last Admin: 11/07/16 08:01 Dose: 20 ml Cefazolin Sodium (Ancef) Confirm Administered Dose 2 gm .ROUTE .STK-MED ONE Stop: 11/07/16 07:26 Citric Acid/Sodium Citrate (Bicitra Solution) 30 ml PO ONETIME ONE Stop: 11/07/16 06:15 Last Admin: 11/07/16 07:21 Dose: 30 ml Diphenhydramine HCl (Benadryl) 25 mg IVPUSH Q6H PRN PRN Reason: Pruritis Fentanyl (Sublimaze) 50 mcg IVPUSH Q5M PRN PRN Reason: Pain Stop: 11/07/16 08:58 Lactated Ringer's (Ringers, Lactated) 1,000 mls @ 125 mls/hr IV ASDIRECTED [facility] Last Admin: 11/07/16 07:22 Dose: 999 mls/hr Oxytocin/Lactated Ringer's (Pitocin In Lr 10 Units/1,000 Ml) 10 unit in 1,000 mls @ 100 mls/hr IV ASDIRECTED [facility] Cefazolin Sodium/Dextrose 2 gm (/ Premix) 50 mls @ 100 mls/hr IV ONETIME ONE Stop: 11/07/16 06:43 Last Admin: 11/07/16 21:49 Dose: Not Given Dextrose/Sodium Chloride (Dextrose 5%-1/2 Ns) 1,000 mls @ 125 mls/hr IV ASDIRECTED [facility] Last Admin: 11/07/16 16:01 Dose: 125 mls/hr Dextrose/Lactated Ringer's (Dextrose 5%-Lactated Ringers) 1,000 mls @ 125 mls/ hr IV ASDIRECTED [facility] Stop: 11/07/16 18:24 Last Admin: 11/07/16 10:55 Dose: 125 mls/hr Dextrose/Lactated Ringer's (Dextrose 5%-Lactated Ringers) Confirm Administered Dose 1,000 mls @ as directed .ROUTE .STK-MED ONE Stop: 11/07/16 10:51 Last Admin: 11/07/16 11:39 Dose: Not Given Ketorolac Tromethamine (Toradol) Confirm Administered Dose 30 mg .ROUTE .STK- MED ONE Stop: 11/07/16 07:26 Meperidine HCl (Demerol) Confirm Administered Dose 50 mg .ROUTE .STK-MED ONE Stop: 11/07/16 08:44 Metoclopramide HCl (Reglan) 10 mg IVPUSH ONETIME ONE Stop: 11/07/16 06:15 Last Admin: 11/07/16 07:21 Dose: 10 mg Morphine Sulfate (Duramorph Pf) Confirm Administered Dose 10 mg .ROUTE .STK-MED ONE Stop: 11/07/16 07:26 Non-Formulary Medication (Pnv95/Ferrous Fumarate/Fa [ Multivitamins]) 1 tab PO DAILY [facility] Ondansetron HCl (Zofran) Confirm Administered Dose 4 mg .ROUTE .STK-MED ONE Stop: 11/07/16 07:26 Ondansetron HCl (Zofran) 4 mg IVPUSH ONETIME PRN PRN Reason: Nausea/Vomiting Oxytocin (Pitocin) Confirm Administered Dose 20 unit .ROUTE .STK-MED ONE Stop: 11/07/16 07:26 Sodium Chloride (Saline Flush) 10 ml FLUSH ASDIRECTED PRN PRN Reason: Keep Vein Open *Q Meaningful Use (DIS) - VTE *Q VTE Criteria *Q: - Stroke *Q Stroke Criteria *Q: - AMI *Q AMI Criteria *Q:
[2016-11-09] MEDS ORDERED: FERROUS FUMARATE PO SCH (09:00)
[2016-11-09] MEDS ORDERED: [UNRECOGNIZED DRUG - OTHER] PO SCH (09:00)
[2016-11-09] MEDS ORDERED: PNV95 PO SCH (09:00)
[2016-11-09] MEDS: Simethicone 80 MG Tab.Chew PO SCH (09:58)
[2016-11-09] MEDS: Prenatal Multivitamin with Calcium/Folic Acid/Iron Tab PO SCH (09:58)
[2016-11-09 12:07] VITALS: BP 134/82
== END 2016-11-09 13:15 | disposition home or self-care (01) | DRG 540 ==
LOC: JD.MS 05:32 → JD.OB 14:18
PROVIDERS: ADMIT Obstetrics & Gynecology; ATTEND Obstetrics & Gynecology
PROC: 10D00Z1 Extraction of Products of Conception, Low, Open Approach (ICD-10-PCS; principal; 2016-11-07)
DX: O34.211 Maternal care for low transverse scar from previous cesarean delivery (principal); N85.8 Other specified noninflammatory disorders of uterus; O99.824 Streptococcus B carrier state complicating childbirth; O90.81 Anemia of the puerperium; Z3A.40 40 weeks gestation of pregnancy; Z37.0 Single live birth
CPT/HCPCS: 01961; 36415; 85025; 85027; 86850; 86900; 86901; 94762; A9270-GY; J0690; J1885; J2175; J2270; J2405; J2590; J2765; J7042; J7120

== ENCOUNTER 2019-08-30 05:39 | Inpatient (IN) | payer BC ==
--- NOTE | 2019-08-25 09:12 | PCM.LDHP ---
L&D History of Present Illness - General Date of Service: 08/30/19 Admit Problem/Dx: Admission Diagnosis/Problem Admission Diagnosis/Problem 08/25/19 09:02 Jabier is a 34-year-old 5 para 3013 white female will be at 39-6/7 weeks gestational age with a final EFREN of 08/31/2019 who is scheduled to be admitted on 08/30/2023 a repeat section. CG, risks, benefits, alternatives of care discussed in detail with patient. She hears to understand and wishes to proceed. She is signed a consent. Source of Information: Patient History Limitations: Reports: No Limitations - History of Present Illness Introduction:: Jabier is a 34-year-old 5 para 3013 white female will be at 39-6/7 weeks gestational age with a final EFREN of 08/31/2019 who is scheduled to be admitted on 08/30/2023 a repeat section. CG, risks, benefits, alternatives of care discussed in detail with patient. She hears to understand and wishes to proceed. She is signed a consent. 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 She had menarche at age 11. Cycles every months with duration of 7-8 days. She was using no control control at this time conception. course: Patient was seen early in on 02/14/2011 with ultrasound was done at that time which is supportive of her EFREN as set by her LMP. She seen on a regular basis. Her vital signs remain stable throughout the course. Weight gain was from 157.4 pounds to 192 pounds or approximately a 35 pound weight increase Height growth was appropriate. Babies been active and she has not had any concerns. She had group B strep positive results on urine culture at the beginning the . Risk factors include age of 34, history of 3 previous sections, history of macrosomic baby. She declined genetic testing. Her Mcdonald depression screening score on 05/04/2019 was 13/30. She has remote history of a LEEP done for cervical dysplasia. Laboratory testing in shows blood to be O+ with negative antibody screen. Her hemoglobin at first visit was 13.6 g/dL with platelets of 265,000. She is rubella immune. RPR is nonreactive. Urine culture showed group B strep at 30-40,000 colonies per milliliter. It is found to be sensitive to penicillin. Her chlamydia and gonorrhea assays were both negative. Second trimester labs showed hemoglobin 11.2 g/dL. Her platelets are 240,000 and her 1 hour GTT was 126. RPR on 06/01/2019 was negative. Group B strep screen was positive on urine culture. Allergies: None prepped medications: vitamins Past medical history: 1. Cervical dysplasia status post LEEP 2. Anxiety/depression not on medications Past surgical history: 1. 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 2. 3. Family history: Mother is alive and healthy as is her father. 3 brothers and one sisters alive and well. Maternal grandmother is C secondary to an DC and heart disease. Maternal grandfather is alive with an DC history. Paternal grandmother is secondary to heart disease. Paternal grandfather secondary to a stroke. No anesthesia, bleeding, blood clotting, genetic or related problems otherwise noted in the family. Social history: Patient is . is Jeremiah. 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 She is a college graduate. They live in [place], [place]. She does not use any significant most alcohol, drugs or tobacco. Review of systems: In general patient has no complaints. Baby has been active. Skin: Negative Lungs: No infectious symptoms or shortness of breath Cardiovascular: No chest pain or exercise intolerance Breasts: changes noted. GI: Negative : Increase fundal height secondary to . Musculoskeletal: Negative Neurological: Negative In general the patient is well-developed, well-nourished, pleasant female of stated age in no acute distress. On last evaluation in clinic her blood pressure was 118/72. Weight was 192 pounds with pregravid weight of 157.4 pounds. Height is 5 feet 6 inches. Prepregnancy body mass index is 23.7 Skin is warm dry without lesions. HEENT, neck and back within normal limits. Lungs are clear with good breath sounds in all lung monet. Cardiovascular exam shows regular and rhythm without murmurs. Breast exam deferred having been done at first visit and found to be normal and is not repeated at this time. She plans to breast-feed. Abdomen is avid with last fundal height at 39.5 cm. Baby is in a vertex presentation. Genital exam declined by patient.. Extremities and neurological exam are grossly within normal limits. - Related Data Allergies/Adverse Reactions: Allergies Allergy/AdvReac Type Severity Reaction Status Date / Time No Known Allergies Allergy Verified 12/08/14 05:59 Home Medications: Home Meds PNV95/Ferrous Fumarate/FA [ Multivitamins] 1 tab PO DAILY 12/08/14 [ History] Acetaminophen/oxyCODONE [Percocet 325-5 MG] 2 tab PO Q6H PRN #0 tablet 11/09/16 [Rx] Docusate Sodium [Colace] 100 mg PO Q12H PRN #0 cap 11/09/16 [Rx] Ibuprofen [IJD: Ibuprofen] 800 mg PO Q8H tablet 11/09/16 [Rx] Simethicone 80 mg PO PCBED tab.chew 11/09/16 [Rx] Past Medical History - Past Health History Medical/Surgical History: Denies Medical/Surgical History Other OB/BYN History: c-sectionx2 in 2010, 2014 Social & Family History - Family History Family Medical History: Noncontributory H&P Review of Systems - Review of Systems: Review Of Systems: See Below L&D Exam - Exam Exam: See Below Problem List Initiated/Reviewed/Updated: Yes Assessment/Plan Comment:: 1. 5 para 3013 white female scheduled to be admitted at 39-6/7 weeks on 08/30/2019 with an EFREN of 08/31/2019 for an elective repeat section. The procedure, risks, benefits, alternatives of care and follow-up were discussed in detail with patient. She appears to understand, wishes to proceed and has signed a consent. 2. Group B strep Positive status on first urine culture 3. Risk factors include history of previous 3, history of macrosomic baby, age of 34 and group B strep positive status. 4. Patient plans to breast-feed. 5. T dap was given on 06/29/2019. Patient is rubella immune. She is had her hepatitis immunizations in 1997. Plan: 1. Repeat lower uterine segment transverse section through Pfannenstiel skin incision under spinal block. 2. Routine admission labs and systems CBC, type and screen, RPR, urinalysis. 3. DVT prophylaxis with SCDs 4. Infection prophylaxis with Ancef 2 g IV preop 5. Inform pediatrics of group B strep positive status 6. Support breast-feeding plans 7. Routine postoperative care.
[~2019-08-30 05:39] MED LIST: Sodium Chloride 0.9% 10 ML Syringe FLUSH PRN
[2019-08-30] MEDS ORDERED: Citric Acid/Sodium Citrate Solution 30 ML Cup PO ONE (06:00)
[2019-08-30] MEDS ORDERED: Lactated Ringers 1,000 ML IV SCH (06:00)
[2019-08-30] MEDS ORDERED: Metoclopramide 10 MG/2 ML SDV IVPUSH ONE (06:00)
[2019-08-30] MEDS ORDERED: Oxytocin/Lactated Ringers 20 UNIT/1,000 ML BAG IV SCH (07:00)
[2019-08-30] MEDS ORDERED: ceFAZolin 2 GM in Premix Bag 1 BAG IV ONE (07:00)
[2019-08-30] MEDS ORDERED: Phenylephrine 1% 10 MG/ML SDV ONE (07:12)
[2019-08-30] MEDS ORDERED: ceFAZolin 1 GM Vial ONE (07:12)
[2019-08-30] MEDS ORDERED: Morphine PF 1 MG/ML Amp ONE (07:14)
[2019-08-30] MEDS ORDERED: Oxytocin 10 Units/1 ML SDV ONE (07:14)
[2019-08-30] MEDS ORDERED: Ketorolac 30 MG/ML SDV ONE (07:15)
[2019-08-30] MEDS ORDERED: Bupivacaine 0.5% 30 ML SDV ONE (07:19)
[2019-08-30] MEDS ORDERED: Lactated Ringers 1,000 ML ONE ×2 (08:29)
[2019-08-30] MEDS ORDERED: Meperidine 50 MG/ML Vial IVPUSH PRN (08:49)
[2019-08-30] MEDS ORDERED: diphenhydrAMINE 50 MG/ML SDV IVPUSH PRN (08:51)
--- NOTE | 2019-08-30 08:52 | PCM.POSTAN ---
POST ANESTHESIA ASSESSMENT - MENTAL STATUS Mental Status: Alert, Oriented - VITAL SIGNS Vital Signs: Last Vital Signs Temp 36.8 C 08/30/19 05:59 Pulse 87 08/30/19 05:59 Resp 16 08/30/19 05:59 BP 120/94 H 08/30/19 05:59 Pulse Ox 100 08/30/19 05:59 - RESPIRATORY Respiratory Status: Respiratory Rate WNL, Airway Patent, O2 Saturation Stable - CARDIOVASCULAR CV Status: Pulse Rate WNL, Blood Pressure Stable - GASTROINTESTINAL GI Status: No Symptoms - PAIN Pain Score: 0 - POST OP HYDRATION Hydration Status: Adequate & Stable - OBSERVATIONS Free Text/Narrative:: no anesthesia complications noted
--- NOTE | 2019-08-30 08:54 | PCM.PREANE ---
Preanesthetic Assessment - Procedure Proposed Procedure: Repeat - Anesthesia/Transfusion/Family Hx Anesthesia History: Prior Anesthesia Without Reaction Family History of Anesthesia Reaction: No Transfusion History: No Prior Transfusion(s) - Review of Systems General: No Symptoms Pulmonary: No Symptoms Cardiovascular: No Symptoms Gastrointestinal: No Symptoms Neurological: No Symptoms Other: Reports: None - Physical Assessment NPO Status Date: 08/29/19 NPO Status Time: 19:00 Vital Signs: Last Vital Signs Temp 36.8 C 08/30/19 05:59 Pulse 87 08/30/19 05:59 Resp 16 08/30/19 05:59 BP 120/94 H 08/30/19 05:59 Pulse Ox 100 08/30/19 05:59 Height: 1.68 m Weight: 85.956 kg ASA Class: 2 Mental Status: Alert & Oriented x3 Airway Class: Mallampati = 2 Dentition: Reports: Normal Dentition Thyro-Mental Finger Breadths: 3 Mouth Opening Finger Breadths: 3 ROM/Head Extension: Full Lungs: Clear to Auscultation, Normal Respiratory Effort Cardiovascular: Regular Rate, Regular Rhythm - Lab Values: Laboratory Last Values WBC 9.53 K/mm3 (3.98-10.04) 08/30/19 05:57 RBC 4.66 M/mm3 (3.98-5.22) 08/30/19 05:57 Hgb 13.1 gm/dl (11.2-15.7) D 08/30/19 05:57 Hct 40.2 % (34.1-44.9) 08/30/19 05:57 MCV 86.3 fl (79.4-94.8) 08/30/19 05:57 MCH 28.1 pg (25.6-32.2) 08/30/19 05:57 MCHC 32.6 g/dl (32.2-35.5) 08/30/19 05:57 RDW Std Deviation 44.0 fL (36.4-46.3) 08/30/19 05:57 Plt Count 255 K/mm3 (182-369) 08/30/19 05:57 MPV 9.5 fl (9.4-12.3) 08/30/19 05:57 Neut % (Auto) 64.9 % (34.0-71.1) 08/30/19 05:57 Lymph % (Auto) 25.4 % (19.3-51.7) 08/30/19 05:57 [place] % (Auto) 7.9 % (4.7-12.5) 08/30/19 05:57 Eos % (Auto) 0.9 (0.7-5.8) 08/30/19 05:57 Baso % (Auto) 0.2 % (0.1-1.2) 08/30/19 05:57 Neut # (Auto) 6.18 K/mm3 (1.56-6.13) H 08/30/19 05:57 Lymph # (Auto) 2.42 K/mm3 (1.18-3.74) 08/30/19 05:57 [place] # (Auto) 0.75 K/mm3 (0.24-0.36) H 08/30/19 05:57 Eos # (Auto) 0.09 K/mm3 (0.04-0.36) 08/30/19 05:57 Baso # (Auto) 0.02 K/mm3 (0.01-0.08) 08/30/19 05:57 Blood Type O POSITIVE 08/30/19 05:57 Gel Antibody Screen Negative 08/30/19 05:57 - Allergies Allergies/Adverse Reactions: Allergies Allergy/AdvReac Type Severity Reaction Status Date / Time No Known Allergies Allergy Verified 08/29/19 16:56 - Anesthesia Plan Pre-Op Medication Ordered: None - Acknowledgements Anesthesia Type Planned: Spinal Pt an Appropriate Candidate for the Planned Anesthesia: Yes Alternatives and Risks of Anesthesia Discussed w Pt/Guardian: Yes Pt/Guardian Understands and Agrees with Anesthesia Plan: Yes PreAnesthesia Questionnaire - Past Health History Medical/Surgical History: Denies Medical/Surgical History Gastrointestinal History: Reports: GERD 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 SAB 04/27/2013 - SUBSTANCE USE Smoking Status *Q: Never Smoker Tobacco Use Within Last Twelve Months: No Recreational Drug Use History: No - HOME MEDS Home Medications: Home Meds PNV95/Ferrous Fumarate/FA [ Multivitamins] 1 tab PO DAILY 12/08/14 [ History] - CURRENT (IN HOUSE) MEDS Current Meds: Current Medications Diphenhydramine HCl (Benadryl) 25 mg IVPUSH Q6H PRN PRN Reason: Itching Lactated Ringer's (Ringers, Lactated) 1,000 mls @ 125 mls/hr IV [facility]IRECTED [facility] Last Admin: 08/30/19 06:28 Dose: 125 mls/hr Oxytocin/Lactated Ringer's (Pitocin In Lr 20 Units/1,000 Ml) 20 unit in 1,000 mls @ 500 mls/hr IV [facility]RECTED [facility] Meperidine HCl (Meperidine) 12.5 mg IVPUSH ASDIRECTED PRN PRN Reason: Tremors Sodium Chloride (Saline Flush) 10 ml FLUSH ASDIRECTED PRN PRN Reason: Keep Vein Open Discontinued Medications Bupivacaine HCl (Marcaine 0.5%) Confirm Administered Dose 30 ml .ROUTE .STK-MED ONE Stop: 08/30/19 07:20 Cefazolin Sodium (Ancef) Confirm Administered Dose 2 gm .ROUTE .STK-MED ONE Stop: 08/30/19 07:13 Citric Acid/Sodium Citrate (Bicitra Solution) 30 ml PO ONETIME ONE Stop: 08/30/19 06:01 Last Admin: 08/30/19 06:29 Dose: 30 ml Cefazolin Sodium/Dextrose 2 gm (/ Premix) 50 mls @ 100 mls/hr IV ONETIME ONE Stop: 08/30/19 07:29 Lactated Ringer's (Ringers, Lactated) Confirm Administered Dose 1,000 mls @ as directed .ROUTE .STK-MED ONE Stop: 08/30/19 08:30 Lactated Ringer's (Ringers, Lactated) Confirm Administered Dose 1,000 mls @ as directed .ROUTE .STK-MED ONE Stop: 08/30/19 08:30 Ketorolac Tromethamine (Toradol) Confirm Administered Dose 30 mg .ROUTE .STK- MED ONE Stop: 08/30/19 07:16 Metoclopramide HCl (Reglan) 10 mg IVPUSH ONETIME ONE Stop: 08/30/19 06:01 Last Admin: 08/30/19 06:30 Dose: 10 mg Morphine Sulfate (Duramorph Pf) Confirm Administered Dose 1 mg .ROUTE .STK-MED ONE Stop: 08/30/19 07:15 Oxytocin (Pitocin) Confirm Administered Dose 20 unit .ROUTE .STK-MED ONE Stop: 08/30/19 07:15 Phenylephrine HCl ([place]-Synephrine) Confirm Administered Dose 10 mg .ROUTE .[facility]- MED ONE Stop: 08/30/19 07:13
--- NOTE | 2019-08-30 08:59 | PCM.OPNOTE ---
- General Post-Op/Procedure Note Date of Surgery/Procedure: 08/30/19 Operative Procedure(s): Repeat lower uterine segment transverse section through Pfannenstiel skin incision Findings: Moderate scarring noted in the anterior abdominal wall. Minimal scarring of the uterus. Uterus tubes ovaries otherwise consistent with term . Baby in vertex presentation. Amniotic fluid clear. Female weighing 7 lbs. 12 oz. , Apgars 8 and 9 born at 0805 hrs. on 08/30/2019. Pre Op Diagnosis: 1. 39-6/7 week intrauterine . 2. History of previous section with desire for repeat section. 3. Advanced maternal age. 4. Group B strep positive status Post-Op Diagnosis: Same every a viable, diehl, female with Apgars of 8 and 9, weight of 7 lbs. 12 oz. at 0805 hrs. on 08/30/2019. Anesthesia Technique: Spinal Other Anesthesia Type: Marcaine 0.5%20 mL local Primary Surgeon: Ty Dunlap Secondary Surgeon: Sebastian Mirza Anesthesia Provider: Sukhdev Wall Reason Teacher Of The Sight Impaired Was Necessary: Retraction, assistance, patient safety, quality of care. Fluid Replacement, Intraop: 2,600 Output, Urine Amount: 125 EBL in mLs: 500 Drain/Tube Comments:: Indwelling bladder catheter Complications: None Condition: Good Free Text/Narrative:: Surgery duration: 37 minutes Surgery duration: Procedure: The patient is appropriately consented. Patient was transferred to the room and placed in a sitting position. Spinal anesthesia was administered. After confirmation of adequate anesthesia patient was placed in a supine position with a wedge under her right side to facilitate left lateral positioning. The patient was prepped and draped in usual fashion after Black catheter was already placed . The anesthetic was checked and found to be adequate. 20 mL of Marcaine 0.5% was injected locally in the Pfannenstiel incision site. The Pfannenstiel skin incision was then made and carried down through skin, subcutaneous and fascial layers. The fascia was then undermined superiorly and inferiorly to allow for adequate operating room. The recti muscles midline and preperitoneal fat was bluntly dissected. Peritoneal cavity was entered longitudinally. The vesicouterine peritoneum was then incised transversely and bladder flap was developed. Myometrium was incised transversely to the level of the amniotic sac. This incision was extended bilaterally in a blunt fashion. The amniotic sac was then ruptured resulting in clear amniotic fluid. A hand is placed in the low uterine segment and the baby's head was brought forth through the incision. The baby was completely delivered using fundal pressure in a routine fashion. The nose and mouth were bulb suctioned. Baby's cord was clamped x2 cut and baby was handed off to attending buzzsaw operator Dr younger. Placenta was expressed after cord blood was obtained. Uterus was then exteriorized to allow for easier closure. The cervix was assessed and found to be dilated adequately to allow egress of blood. The uterus was closed in 2 layers. The first layer a running locked suture of 0 Monocryl, the second layer a running locked vertical mattress suture of 0 Monocryl. [id number] suture was placed at mid incision to control 1 bleeder. Hemostasis confirmed at this time. Sponge instrument needle counts are correct. The uterus was returned to the abdominal cavity and lateral gutters were cleared of blood. Once again sponge needle counts are correct. The anterior abdominal wall was closed with a #1 PDS suture from angle to angle. The subcutaneous area was found to be free of any bleeders. interrupted sutures of 3-0 Monocryl were used to reapproximate the subcutaneous layer.Skin was closed with a running subcuticular stitch of 3-0 Monocryl in a vertical mattress suture fashion using a Deven needle. Prineo mesh/glue was then applied to further approximate the incision. It should be noted that patient received 2 g of Ancef preoperatively for infection prophylaxis and had Pitocin infused after delivery of the placenta to facilitate uterine contraction. She also had sequential compression stockings in place for DVT prophylaxis. Patient was discharged from the operating room in satisfactory condition.
[2019-08-30] MEDS ORDERED: Acetaminophen/oxyCODONE 325-5 MG Tab PO PRN (09:32)
[2019-08-30] MEDS: Docusate Sodium 100 MG Cap PO PRN (11:05)
[2019-08-30] MEDS: Prenatal Multivitamin with Calcium/Folic Acid/Iron Tab PO SCH (11:06)
[2019-08-30] MEDS: Ibuprofen 800 MG Tab PO SCH ×2 (14:20→22:40)
[2019-08-31] MEDS: Ibuprofen 800 MG Tab PO SCH ×3 (06:23→22:31)
--- NOTE | 2019-08-31 07:12 | PCM.SN.2 ---
- Free Text/Narrative Note: note: Postoperative day #1 Patient is doing well in the period. Minimal lochia, catheter is still in place. Nursing without concerns. Patient is afebrile, vital signs are stable Lungs are clear with good breath sounds in all lung monet. Cardiovascular exam shows regular rate and rhythm. Abdomen is flat, soft, uterus is below the umbilicus and is firm and nontender. Incision is relatively dry, intact. No evidence of infection, hematoma or seroma. Legs are nontender. CBC pending Assessment: /postoperative day #1 recovery going well. Plan: Routine postoperative care. Patient be discharged home within the next 24- 48 hours.
--- NOTE | 2019-08-31 08:07 | PCM48HPAN ---
Post Anesthesia Note - EVALUATION WITHIN 48HRS OF ANESTHETIC Vital Signs in Normal Range: Yes Patient Participated in Evaluation: Yes Respiratory Function Stable: Yes Airway Patent: Yes Cardiovascular Function Stable: Yes Hydration Status Stable: Yes Pain Control Satisfactory: Yes Nausea and Vomiting Control Satisfactory: Yes Mental Status Recovered: Yes Vital Signs: Last Vital Signs Temp 98.1 F 08/31/19 05:59 Pulse 89 08/31/19 06:00 Resp 15 08/31/19 07:00 BP 128/80 08/31/19 05:59 Pulse Ox 100 08/31/19 07:00
[2019-08-31] MEDS: Prenatal Multivitamin with Calcium/Folic Acid/Iron Tab PO SCH (10:49)
[2019-08-31] MEDS: Docusate Sodium 100 MG Cap PO PRN (12:33)
[2019-08-31] MEDS: Acetaminophen/oxyCODONE 325-5 MG Tab PO PRN ×2 (12:33→21:43)
[2019-09-01] MEDS: Ibuprofen 800 MG Tab PO SCH (06:10)
--- NOTE | 2019-09-01 06:46 | PCM.DCSUM1 ---
Discharge Summary - Hospital Course Free Text/Narrative:: Jabier is a 34-year-old 5 now para 4014 white female who was admitted on 08/30/2019 at 39-6/7 weeks with an EFREN of 08/31/2019 for elective repeat section. This was her fourth section. She underwent spinal anesthesia repeat section with delivery of a viable, diehl, female with Apgars of 8 and 9, weight of 7 lbs. 12 oz. at 0805 hrs. on 08/30/2019. Patient was given Duramorph through her spinal block for postoperative pain relief. Postoperatively patient is done very well. She is nursing without problems, has minimal lochia. Pain is under good control with ibuprofen and Percocet when necessary. He is ambulating well and vital signs stable. She is voiding without problems. She is desiring discharge home today. Diagnosis: Stroke: No - Discharge Data Discharge Date: 09/01/19 Discharge Disposition: Home, Self-Care 01 Condition: Good - Referral to Home Health Primary Care Physician: Hansa Bunch NP - Patient Summary/Data Operative Procedure(s) Performed: Repeat lower uterine segment transverse section through Pfannenstiel skin incision - Patient Instructions Diet: Regular Diet as Tolerated (Nursing diet with increase calories and calcium as directed) Activity: As Tolerated (No intercourse or tampons until seen back. No lifting greater than 15 pounds or driving a car 1 week.) Driving: Do Not Drive Showering/Bathing: May Shower Wound/Incision Care: Keep Operative Site/Wound Site Clean and Dry Notify Provider of: Fever, Increased Pain, Swelling and Redness, Drainage, Nausea and/or Vomiting - Discharge Plan Home Medications: Home Meds PNV95/Ferrous Fumarate/FA [ Multivitamins] 1 tab PO DAILY 12/08/14 [ History] Acetaminophen/oxyCODONE [Percocet 325-5 MG] 2 tab PO Q4H PRN tablet 09/01/19 [ Rx] Ibuprofen [Motrin] 800 mg PO Q8H tablet 09/01/19 [Rx] - Discharge Summary/Plan Comment DC Time >30 min.: No Discharge Summary/Plan Comment: Discharge instructions: 1. Discharge home 2. Diet, activity and follow-up discussed with patient. Recommend nursing diet with increased calories and calcium. 3. Precautions given concern increased pain, bleeding, temperature, signs/ symptoms of DVT/PE. 4. Medications per home medication was printed, discussed with and given to the patient. 5. Return to clinic-Dr. Dunlap[facility] in 2 weeks. Diagnosis: 1. Term -delivered By repeat section Condition: Good - Patient Data Vitals - Most Recent: Last Vital Signs Temp 36.7 C 09/01/19 02:57 Pulse 83 09/01/19 02:57 Resp 16 09/01/19 02:57 BP 127/89 09/01/19 02:57 Pulse Ox 99 09/01/19 02:57 Weight - Most Recent: 85.956 kg I&O - Last 24 hours: Intake & Output 08/31/19 08/31/19 09/01/19 14:59 22:59 06:59 Intake Total 120 480 Output Total 300 Balance -180 480 Lab Results - Last 24 hrs: Laboratory Results - last 24 hr 08/31/19 Range/Units 06:05 WBC 8.36 (3.98-10.04) K/mm3 RBC 3.50 L (3.98-5.22) M/mm3 Hgb 9.6 L D (11.2-15.7) gm/dl Hct 30.7 L (34.1-44.9) % MCV 87.7 (79.4-94.8) fl MCH 27.4 (25.6-32.2) pg MCHC 31.3 L (32.2-35.5) g/dl RDW Std Deviation 44.5 (36.4-46.3) fL Plt Count 191 (182-369) K/mm3 MPV 9.3 L (9.4-12.3) fl Neut % (Auto) 72.4 H (34.0-71.1) % Lymph % (Auto) 20.2 (19.3-51.7) % [place] % (Auto) 5.5 (4.7-12.5) % Eos % (Auto) 1.2 (0.7-5.8) Baso % (Auto) 0.2 (0.1-1.2) % Neut # (Auto) 6.05 (1.56-6.13) K/mm3 Lymph # (Auto) 1.69 (1.18-3.74) K/mm3 [place] # (Auto) 0.46 H (0.24-0.36) K/mm3 Eos # (Auto) 0.10 (0.04-0.36) K/mm3 Baso # (Auto) 0.02 (0.01-0.08) K/mm3 Manual Slide Review Not Reportable Med Orders - Current: Current Medications Diphenhydramine HCl (Benadryl) 25 mg IVPUSH Q6H PRN PRN Reason: Itching Docusate Sodium (Colace) 100 mg PO BID PRN PRN Reason: Constipation Last Admin: 08/31/19 12:33 Dose: 100 mg Ibuprofen (Motrin) 800 mg PO Q8H FANNIE Last Admin: 09/01/19 06:10 Dose: 800 mg Meperidine HCl (Meperidine) 12.5 mg IVPUSH ASDIRECTED PRN PRN Reason: Tremors Last Admin: 08/30/19 08:59 Dose: 12.5 mg Oxycodone/Acetaminophen (Percocet 325-5 Mg) 1 tab PO Q4H PRN PRN Reason: Pain (moderate 4-6) Last Admin: 08/31/19 21:43 Dose: 1 tab Oxycodone/Acetaminophen (Percocet 325-5 Mg) 2 tab PO Q4H PRN PRN Reason: Pain (severe 7-10) Prenat Multivit/Treatment Coordinator/Iron/Folic Ac ( Plus Iron) 1 each PO DAILY [facility] Last Admin: 08/31/19 10:49 Dose: 1 each Discontinued Medications Bupivacaine HCl (Marcaine 0.5%) Confirm Administered Dose 30 ml .ROUTE .STK-MED ONE Stop: 08/30/19 07:20 Last Admin: 08/30/19 08:00 Dose: 20 ml Cefazolin Sodium (Ancef) Confirm Administered Dose 2 gm .ROUTE .STK-MED ONE Stop: 08/30/19 07:13 Citric Acid/Sodium Citrate (Bicitra Solution) 30 ml PO ONETIME ONE Stop: 08/30/19 06:01 Last Admin: 08/30/19 06:29 Dose: 30 ml Cefazolin Sodium/Dextrose 2 gm (/ Premix) 50 mls @ 100 mls/hr IV ONETIME ONE Stop: 08/30/19 07:29 Last Admin: 08/30/19 10:35 Dose: Not Given Lactated Ringer's (Ringers, Lactated) 1,000 mls @ 125 mls/hr IV ASDIRECTED [facility] Last Admin: 08/30/19 06:28 Dose: 125 mls/hr Oxytocin/Lactated Ringer's (Pitocin In Lr 20 Units/1,000 Ml) 20 unit in 1,000 mls @ 500 mls/hr IV ASDIRECTED FANNIE Lactated Ringer's (Ringers, Lactated) Confirm Administered Dose 1,000 mls @ as directed .ROUTE .STK-MED ONE Stop: 08/30/19 08:30 Lactated Ringer's (Ringers, Lactated) Confirm Administered Dose 1,000 mls @ as directed .ROUTE .STK-MED ONE Stop: 08/30/19 08:30 Ketorolac Tromethamine (Toradol) Confirm Administered Dose 30 mg .ROUTE .STK- MED ONE Stop: 08/30/19 07:16 Metoclopramide HCl (Reglan) 10 mg IVPUSH ONETIME ONE Stop: 08/30/19 06:01 Last Admin: 08/30/19 06:30 Dose: 10 mg Morphine Sulfate (Duramorph Pf) Confirm Administered Dose 1 mg .ROUTE .STK-MED ONE Stop: 08/30/19 07:15 Oxytocin (Pitocin) Confirm Administered Dose 20 unit .ROUTE .STK-MED ONE Stop: 08/30/19 07:15 Phenylephrine HCl ([place]-Synephrine) Confirm Administered Dose 10 mg .ROUTE .STK- MED ONE Stop: 08/30/19 07:13 Sodium Chloride (Saline Flush) 10 ml FLUSH ASDIRECTED PRN PRN Reason: Keep Vein Open
[2019-09-01] MEDS: Acetaminophen/oxyCODONE 325-5 MG Tab PO PRN (08:06)
[2019-09-01] MEDS: Prenatal Multivitamin with Calcium/Folic Acid/Iron Tab PO SCH (08:06)
[2019-09-01] MEDS: Docusate Sodium 100 MG Cap PO PRN (08:06)
[2019-09-01 09:51] VITALS: BP 127/87; PULSE 87
== END 2019-09-01 10:48 | disposition home or self-care (01) | DRG 540 ==
LOC: JD.OB 05:39
PROVIDERS: ADMIT Obstetrics & Gynecology; ATTEND Obstetrics & Gynecology
PROC: 10D00Z1 Extraction of Products of Conception, Low, Open Approach (ICD-10-PCS; principal; 2019-08-30)
DX: O34.211 Maternal care for low transverse scar from previous cesarean delivery (principal); Z37.0 Single live birth; Z3A.39 39 weeks gestation of pregnancy
CPT/HCPCS: 01961; 36415; 59025; 85025; 86592; 86850; 86900; 86901; A9270-GY; J0690; J1885; J2175; J2274; J2370; J2590; J2765; J3490; J7120

== ENCOUNTER 2024-04-21 19:18 | Emergency (ER) | payer BC ==
[2024-04-21 19:33] VITALS: BP 147/93; PULSE 82
[2024-04-21] MEDS ORDERED: Sodium Chloride 0.9% 10 ML Syringe FLUSH PRN (20:35)
[2024-04-21 20:43] LABS: BASOPHILS PERCENT AUTO 0.4 % (0.0-1.0); EOSINOPHILS ABSOLUTE AUTO 0.2 K/mm3 (0.0-0.4); EOSINOPHILS PERCENT AUTO 2.3 % (0.0-6.0); HEMATOCRIT 38.9 % (37.0-47.0); HEMOGLOBIN 13.3 gm/dl (12.0-16.0); IMMATURE GRAN ABSOLUTE AUTO 0.02 K/mm3 (0.00-0.05); IMMATURE GRAN PERCENT AUTO 0.3 % (0.0-0.4); LYMPHOCYTES ABSOLUTE AUTO 3.1 K/mm3 (1.0-4.8); LYMPHOCYTES PERCENT AUTO 39.5 % (24.0-44.0); MEAN CORPUSCULAR HEMOGLOBIN 27.7 pg (28.0-32.0); MEAN CORPUSCULAR HGB CONC 34.2 g/dl (32.0-36.0); MEAN CORPUSCULAR VOLUME 80.9 fl (83.0-99.0); MONOCYTES ABSOLUTE AUTO 0.5 K/mm3 (0.0-0.8); MONOCYTES PERCENT AUTO 6.1 % (0.0-8.0); NEUTROPHILS ABSOLUTE AUTO 4.1 K/mm3 (1.8-7.7); NEUTROPHILS PERCENT AUTO 51.4 % (41.0-71.0); PLATELET COUNT,PLT 296 K/mm3 (150-400); RED BLOOD CELL COUNT 4.81 M/mm3 (4.10-5.30); WHITE BLOOD CELL COUNT,WBC 7.93 K/mm3 (3.9-11.3)
[2024-04-21] MEDS: Famotidine 20 MG Tab PO ONE (20:49)
[2024-04-21] MEDS: Alum Hydrox/Mag Hydrox/Simeth 30 ML, Lidocaine 2% 15 ML PO ONE (20:49)
[2024-04-21 20:56] LABS: APPEARANCE,URINE CLEAR (Clear); BILIRUBIN,URINE NEGATIVE (Negative); COLOR,URINE LIGHT YELLOW (Yellow); GLUCOSE,URINE NEGATIVE (Negative); KETONES,URINE NEGATIVE (Negative); LEUKOCYTE ESTERASE,URINE NEGATIVE (Negative); NITRITE,URINE NEGATIVE (Negative); OCCULT BLOOD,URINE NEGATIVE (Negative); PROTEIN,URINE NEGATIVE (Negative); UROBILINOGEN,URINE 0.2 (0.2-1.0)
[2024-04-21 21:03] LABS: A/G RATIO 1.1 (1-2); ALANINE AMINOTRANSFERASE,ALT 29 U/L (14-59); ALBUMIN 3.9 g/dl (3.4-5.0); ALKALINE PHOSPHATASE 64 U/L (46-116); ANION GAP 14.4 (5-15); ASPARTATE AMNIOTRANSFERASE,AST 18 U/L (15-37); BILIRUBIN TOTAL 0.2 mg/dL (0.2-1.0); BLOOD UREA NITROGEN,BUN 16 mg/dL (7-18); BUN/CREATININE RATIO 17.8 (14-18); CALCIUM 9.9 mg/dL (8.5-10.1); CARBON DIOXIDE,CO2 23 mEq/L (21-32); CHLORIDE,CL 103 mEq/L (98-107); CREATININE 0.9 mg/dL (0.55-1.02); EST CRCL DRUG DOSING (CG) 77.79 mL/min; ESTIMATED GFR 83 mL/min (>60); GLUCOSE RANDOM 103 mg/dL (70-99); PROTEIN TOTAL,TP 7.6 g/dl (6.4-8.2); SODIUM,NA 137 mEq/L (136-145)
[2024-04-21 21:07] LABS: TROPONIN I HIGH SENSITIVITY < 4 pg/mL (<=51)
[2024-04-21 21:08] LABS: POTASSIUM,K 3.4 mEq/L (3.5-5.1)
== END 2024-04-22 00:05 | disposition home or self-care (01) ==
LOC: JD.ED 19:18
DX: R10.13 Epigastric pain (principal); R07.9 Chest pain, unspecified; Z79.899 Other long term (current) drug therapy
CPT/HCPCS: 36415; 71045; 80053; 81003; 83690; 84484; 84703; 85025; 93005; 99285; A9270

== ENCOUNTER 2025-03-25 18:46 | Emergency (ER) | payer BC ==
[2025-03-25 19:40] LABS: BASOPHILS ABSOLUTE AUTO 0.0 K/mm3 (0.0-0.2); BASOPHILS PERCENT AUTO 0.1 % (0.0-1.0); EOSINOPHILS ABSOLUTE AUTO 0.0 K/mm3 (0.0-0.4); EOSINOPHILS PERCENT AUTO 0.1 % (0.0-6.0); IMMATURE GRAN ABSOLUTE AUTO 4.93 K/mm3 (0.00-0.05); IMMATURE GRAN PERCENT AUTO 18.8 % (0.0-0.4); LYMPHOCYTES ABSOLUTE AUTO 2.4 K/mm3 (1.0-4.8); LYMPHOCYTES PERCENT AUTO 9.2 % (24.0-44.0); MEAN PLATELET VOLUME 9.2 fl (9.4-12.3); MONOCYTES ABSOLUTE AUTO 2.1 K/mm3 (0.0-0.8); MONOCYTES PERCENT AUTO 7.9 % (0.0-8.0); NEUTROPHILS ABSOLUTE AUTO 16.8 K/mm3 (1.8-7.7); NEUTROPHILS PERCENT AUTO 63.9 % (41.0-71.0); NRBC ABSOLUTE 0.06 (0.00-0.02); NRBC PERCENT 0.2 % (0.0-0.2); PLATELET COUNT,PLT 235 K/mm3 (150-400); RED BLOOD CELL COUNT 4.54 M/mm3 (4.10-5.30); WHITE BLOOD CELL COUNT,WBC 26.21 K/mm3 (3.9-11.3)
[2025-03-25 20:15] LABS: A/G RATIO 1.0 (1-2); ALANINE AMINOTRANSFERASE,ALT 55.0 U/L (14-59); ASPARTATE AMNIOTRANSFERASE,AST 25.0 U/L (15-37); BILIRUBIN TOTAL 0.3 mg/dL (0.2-1.0); BLOOD UREA NITROGEN,BUN 9.0 mg/dL (7-18); CARBON DIOXIDE,CO2 25.0 mEq/L (21-32); CHLORIDE,CL 105.0 mEq/L (98-107); CREATININE 0.9 mg/dL (0.55-1.02); EST CRCL DRUG DOSING (CG) 77.01 mL/min; ESTIMATED GFR 82.0 mL/min (>60); GLUCOSE RANDOM 103.0 mg/dL (70-99); POTASSIUM,K 4.0 mEq/L (3.5-5.1); PROTEIN TOTAL,TP 6.6 g/dl (6.4-8.2); SODIUM,NA 139.0 mEq/L (136-145)
[2025-03-25 21:28] VITALS: BP 139/85; PULSE 99
== END 2025-03-25 21:20 | disposition home or self-care (01) ==
LOC: JD.ED 18:46
DX: J02.8 Acute pharyngitis due to other specified organisms (principal)
CPT/HCPCS: 36415; 80053; 85025; 86140; 87428-QW; 87651; 99283

== ENCOUNTER 2025-03-28 23:12 | Emergency (ER) | payer BC ==
[2025-03-28] MEDS ORDERED: Sodium Chloride 0.9% 10 ML Syringe FLUSH PRN (23:42)
[2025-03-29] MEDS: Lactated Ringers 1,000 ML IV ONE
[2025-03-29 00:07] LABS: BASOPHILS ABSOLUTE AUTO 0.1 K/mm3 (0.0-0.2); BASOPHILS PERCENT AUTO 0.5 % (0.0-1.0); EOSINOPHILS ABSOLUTE AUTO 0.0 K/mm3 (0.0-0.4); EOSINOPHILS PERCENT AUTO 0.1 % (0.0-6.0); IMMATURE GRAN ABSOLUTE AUTO 1.32 K/mm3 (0.00-0.05); IMMATURE GRAN PERCENT AUTO 6.7 % (0.0-0.4); LYMPHOCYTES ABSOLUTE AUTO 3.0 K/mm3 (1.0-4.8); LYMPHOCYTES PERCENT AUTO 15.2 % (24.0-44.0); MEAN PLATELET VOLUME 8.8 fl (9.4-12.3); MONOCYTES ABSOLUTE AUTO 0.9 K/mm3 (0.0-0.8); MONOCYTES PERCENT AUTO 4.5 % (0.0-8.0); NEUTROPHILS ABSOLUTE AUTO 14.3 K/mm3 (1.8-7.7); NEUTROPHILS PERCENT AUTO 73.0 % (41.0-71.0); NRBC ABSOLUTE 0.00 (0.00-0.02); NRBC PERCENT 0.0 % (0.0-0.2); PLATELET COUNT,PLT 216 K/mm3 (150-400); RED BLOOD CELL COUNT 4.25 M/mm3 (4.10-5.30); WHITE BLOOD CELL COUNT,WBC 19.57 K/mm3 (3.9-11.3)
[2025-03-29 00:30] LABS: BLOOD UREA NITROGEN,BUN 11.0 mg/dL (7-18); CARBON DIOXIDE,CO2 24.0 mEq/L (21-32); CHLORIDE,CL 105.0 mEq/L (98-107); CREATININE 0.8 mg/dL (0.55-1.02); EST CRCL DRUG DOSING (CG) 86.63 mL/min; ESTIMATED GFR 95.0 mL/min (>60); GLUCOSE RANDOM 107.0 mg/dL (70-99); POTASSIUM,K 3.4 mEq/L (3.5-5.1); SODIUM,NA 140.0 mEq/L (136-145)
[2025-03-29 00:39] LABS: LACTIC ACID 0.7 mmol/L (0.4-2.0)
[2025-03-29 01:24] VITALS: BP 122/79; PULSE 89
== END 2025-03-29 01:23 | disposition home or self-care (01) ==
LOC: JD.ED 23:12
DX: J20.9 Acute bronchitis, unspecified (principal); E86.0 Dehydration; Z79.899 Other long term (current) drug therapy; Z86.16 Personal history of COVID-19
CPT/HCPCS: 36415; 71046; 80048; 83605; 85025; 96360; 99283; J7120